=== PATIENT | male | born 1970 | race Caucasian/White ===

== ENCOUNTER 2017-03-30 11:33 | Emergency (ER) | payer OTHER ==
[2017-03-30 11:47] VITALS: RESP 18; TEMP 98
[2017-03-30 12:30] LABS: % IMMATURE GRANULYOCYTES 0.7 % (0.0-1.1); ABSOLUTE IMMATURE GRANULOCYTES 0.05 10^3/uL (0.00-0.10); ADD DIFF? NO; ADD MORPH? NO; ADD SCAN? NO; ATYPICAL LYMPHOCYTE FLAG 20 (0-99); FRAGMENT RBC FLAG 0 (0-99); HEMATOCRIT 40.2 % (40.0-51.0); HEMOGLOBIN 13.8 g/dL (13.7-17.5); LEFT SHIFT FLG 10 (0-99); LIPEMIA HEMOLYSIS FLAG 90 (0-99); MEAN CELL HEMOGLOBIN 30.3 pg (27.9-34.1); MEAN CELL HEMOGLOBIN CONCENTR. 34.3 g/dL (32.4-36.7); MEAN CELL VOLUME 88.4 fL (81.5-99.8); MEAN PLATELET VOLUME 9.6 fL (8.7-11.7); PLATELET CLUMPS FLAG 0 (0-99); PLATELET COUNT 273 10^3/uL (150-400); RED BLOOD CELL COUNT 4.55 10^6/uL (4.40-6.38); RED CELL DISTRIBUTION WIDTH 12.2 % (11.5-15.2)
--- NOTE | 2017-03-30 12:35 | EDPHY ---
H & P Time Seen by Provider: 03/30/17 11:43 HPI/ROS: This patient reports left great toe/1st metatarsophalangeal joint pain swelling and redness with moderate to severe pain. Symptoms started gradually week ago and have progressed. Pain is worse with walking. He also reports some swelling to his lower extremities over the past year or so and remarks that this is worse when he seated at his desk all day intense resolved when he sleeps. A in the morning there is no ankle swelling. He is accompanied by his who is concerned about his symptoms and requests workup. They are worried about gout, diabetes, and potential kidney problems. He took tramadol with partial relief of his toe pain last night has not had any medications today. No other exacerbating factors are noted. ROS: No fevers chills or other constitutional symptoms HEENT: Seasonal allergies recently with coryza and sneezing. Pulmonary: No cough shortness of breath. Cardiovascular: No chest pain. No persistent palpitations occasionally feels an extra beat. He reports no calf pain or swelling. GI: No symptoms : No symptoms Endocrine: No polyuria or polydipsia. He has had a 15 lb weight loss over this past year and thinks this may be to change in his diet-he is eating less bread products because it was not agreeing with stomach. He describes some epigastric discomfort which he eats bread. Integumentary: No skin rash. However, he does have dry skin on his feet. Musculoskeletal: He reports no joint pain other than his great toe. Neuro: He reports falling asleep very easily often during the day but reports this is longstanding. He does have sleep apnea and admits that he is not using supplemental oxygen at night at this time. Complete review of symptoms is otherwise negative Past Medical/Surgical History: High cholesterol Sleep apnea Smoking Status: Former smoker (Quit cigarettes 2 years ago. He still uses a vaporizer.) Physical Exam: General Appearance: Alert, no distress. Eyes: Pupils equal and round no pallor or injection. ENT, Mouth: Mucous membranes moist. Respiratory: There are no retractions, lungs are clear to auscultation. Cardiovascular: Regular rate and rhythm. Gastrointestinal: Abdomen is soft and nontender, no masses, bowel sounds normal. Neurological: GCS 15 with no focal sensory or motor deficits. Skin: Warm and dry, no rashes. Musculoskeletal: Neck is supple nontender. Extremities are symmetrical, full range of motion and normal except for left foot Left foot: Patient has mild swelling erythema and tenderness to the 1st metatarsophalangeal joint. There is mild ankle edema left -none on the right. No calf swelling or tenderness. Psychiatric: Mood and affect are normal DIFFERENTIAL DIAGNOSIS: After history and physical exam differential diagnosis was considered for gout, pseudogout, doubt septic arthritis, a dependent edema, renal insufficiency, Constitutional: Initial Vital Signs Temperature (C) 36.6 C 03/30/17 11:45 Heart Rate 74 03/30/17 11:45 Respiratory Rate 18 03/30/17 11:45 Blood Pressure 127/84 H 03/30/17 11:45 O2 Sat (%) 98 03/30/17 11:45 O2 Delivery Mode Room Air Allergies/Adverse Reactions: Penicillins Allergy (Verified 10/14/14 10:18) Home Medications: Medication Instructions Recorded Indomethacin [Indocin 25 mg (RX)] 50 mg PO TID PRN #50 cap 03/30/17 Wellbutrin Sr 03/30/17 traMADol 03/30/17 traMADol [Ultram 50 mg (*)] 50 - 100 mg PO Q4 PRN #15 tab 03/30/17 MDM/Departure - MDM ED Course/Re-evaluation: Discussion: Patient's labs are normal. His mono arthropathy of the 1st metatarsophalangeal joint is most consistent with gout clinically. I counseled regarding this. Think he is also having element of dependent edema I counseled him regarding this. No concerning findings that suggest septic joint, DVT or other complicating factors. We effectively ruled out diabetes with normal glucose and no glucosuria - Depart Disposition: Home, Routine, Self-Care Clinical Impression: Gouty arthritis of toe, Dependent edema Condition: Good Instructions: Low Purine Diet (ED), Gout (ED) Additional Instructions: Diagnoses: 1. Acute gouty arthritis of great toe 2. Dependent edema Plan: Drink plenty fluids, decreased protein intake Indocin anti-inflammatory as prescribed Tylenol or tramadol in addition if needed for pain control Follow up with primary care physician Return for any significant worsening despite the treatment plan Prescriptions: Indomethacin [Indocin 25 mg (RX)] 50 mg PO TID PRN #50 cap PRN Reason: pain traMADol [Ultram 50 mg (*)] 50 - 100 mg PO Q4 PRN #15 tab PRN Reason: breakthrough pain Referrals: Susie Craig DO [Primary Care Provider] - As per Instructions
[2017-03-30 12:40] LABS: COLOR YELLOW; LEUKOCYTE ESTERASE,URINE NEGATIVE (NEGATIVE); NITRITE,URINE NEGATIVE (NEGATIVE); PH,URINE 5.5 (5.0-7.5)
[2017-03-30 12:45] VITALS: BP 122/68; PULSE 75; O2SAT 96
[2017-03-30 12:57] LABS: ANION GAP 15 mEq/L (8-16); CARBON DIOXIDE 24 mEq/l (22-31); CHLORIDE 101 mEq/L (97-110); GLOMERULAR FILTRATION RATE > 60; GLUCOSE 82 mg/dL (70-100); POTASSIUM 4.8 mEq/L (3.5-5.2); SODIUM 140 mEq/L (134-144); URIC ACID 8.3 mg/dL (3.5-8.5)
[2017-03-30 12:59] LABS: WBC,URINE 0-1 /hpf (0-3)
== END 2017-03-30 13:17 | disposition home or self-care (01) ==
LOC: CED 11:33
DX: M10.071 Idiopathic gout, right ankle and foot (principal); R60.9 Edema, unspecified; Z87.891 Personal history of nicotine dependence
CPT/HCPCS: 80048-PO; 81003-PO; 81015-PO; 84550-PO; 85025-PO